=== PATIENT | male | born 1950 | race Caucasian/White ===

== ENCOUNTER 2018-10-21 08:40 | Day surgery (SDC) | payer MEDICARE, OTHER ==
[2018-10-21] MEDS ORDERED: MIDAZOLAM 1 MG/ML 2 ML INJ (10:49)
[2018-10-21] MEDS ORDERED: PROPOFOL 40 ML (10:49)
[2018-10-21] MEDS ORDERED: LIDOCAINE 2% (SDV) 5 ML INJ (10:49)
[2018-10-21] MEDS ORDERED: FENTAnyl 50 MCG/ML VIAL (10:49)
[2018-10-21] MEDS ORDERED: PROPOFOL 200 MG INJ (10:49)
== END 2018-10-21 11:40 | disposition home or self-care (01) ==
LOC: GIL 08:40
DX: Z12.11 Encounter for screening for malignant neoplasm of colon (principal); K64.8 Other hemorrhoids
CPT/HCPCS: G0121